=== PATIENT | male | born 1965 | race Two or more races ===

== ENCOUNTER 2021-04-05 09:45 | Emergency (ER) | payer SELFPAY ==
[~2021-04-05] VITALS: Ht 167.6 cm; Wt 79.4 kg
[2021-04-05] MEDS ORDERED: SODIUM CHLORIDE 0.9% 1,000 ML IV ONE ×2 (10:00)
[2021-04-05] MEDS ORDERED: THIAMINE 100mg/ml INJ (200mg/2ml VIAL) IV ONE (10:00)
[2021-04-05 10:09] LABS: Basophils # (auto) 0.1 10 ^3/uL (0-0.2); Basophils % (auto) 0.8 % (0.0-2.0); Eosinophils # (auto) 0 10 ^3/uL (0-0.8); Eosinophils % (auto) 0.4 % (0.0-7.0); Hematocrit 37.9 % (41.0-53.0); Lymphocytes # (auto) 0.5 10 ^3/uL (0.4-5.4); Lymphocytes % (auto) 7.3 % (10.0-50.0); Mean Corpuscular Hemoglobin 32.8 pg (28.0-32.0); Mean Corpuscular Hgb Conc. 34.3 g/dL (32.0-36.0); Mean Corpuscular Volume 95.7 fL (80.0-100.0); Monocytes # (auto) 0.6 10 ^3/uL (0-1.3); Monocytes % (auto) 9.5 % (0.0-12.0); Neutrophils # (auto) 5.4 10 ^3/uL (1.6-8.6); Nucleated Red Blood Cells % 0.1 %; Red Blood Cells 3.97 10^6/uL (4.5-5.90); Red Cell Distribution Width 12.9 % (11.8-14.3); White Blood Cell 6.5 10^3/uL (4.4-10.8)
[2021-04-05] MEDS ORDERED: cloNIDine HCL 0.1 MG TAB ONE (10:18)
[2021-04-05 10:25] LABS: Albumin 3.6 g/dL (3.4-5.0); Anion Gap 14 (5-15); BUN/Creatinine Ratio 19.2; Blood Alcohol < 3.0 mg/dL (0-5); Blood Urea Nitrogen 20 mg/dL (7-18); Carbon Dioxide 22 mmol/L (21-32); Chloride 99 mmol/L (98-107); GFR African American 95 mL/min; GFR Non-African American 79 mL/min; Glucose 129 mg/dL (74-106); Sodium 135 mmol/L (136-145)
[2021-04-05 10:29] LABS: Alanine Aminotransferase 46 U/L (16-61); Alkaline Phosphatase 85 U/L (45-117); Aspartate Aminotransferase 68 U/L (15-37); Total Protein 8.3 g/dL (6.4-8.2)
[2021-04-05 10:30] LABS: INR 1.26 (0.9-1.15); Partial Thromboplastin Time 25.5 sec (23.6-33.0)
[2021-04-05] MEDS ORDERED: cloNIDine HCL 0.1 MG TAB PO ONE (10:30)
[2021-04-05 11:00] LABS: Urine Bacteria FEW /hpf (None Seen); Urine Blood TRACE /uL (Negative); Urine Hyaline Cast FEW /lpf (0 - 2); Urine Specific Gravity 1.009 (1.001-1.035); Urine WBC 1 /hpf (0 - 3)
[2021-04-05 11:40] LABS: Alcohol, Urine < 3.0 mg/dL (0-10); Amphetamine Screen, Urine NEGATIVE (NEGATIVE); Barbiturate Scree,Urine NEGATIVE (NEGATIVE); Benzodiazephine Screen, Urine NEGATIVE (NEGATIVE); Cannabinoid Screen, Urine NEGATIVE (NEGATIVE); Cocaine Screen, Urine NEGATIVE (NEGATIVE); Opiate Scree,Urine NEGATIVE (NEGATIVE); Phencyclidine Screen, Urine NEGATIVE (NEGATIVE)
[2021-04-05] MEDS ORDERED: cefTRIAXone SOD 1,000 MG VL IM ONE (13:00)
[2021-04-05 14:20] VITALS: BP 144/84
== END 2021-04-05 14:29 | disposition home or self-care (01) ==
LOC: ER 09:45 → EDBD 09:45 → ER 14:19
DX: S01.01XA Laceration without foreign body of scalp, initial encounter (principal); X58.XXXA Exposure to other specified factors, initial encounter; Y93.89 Activity, other specified; Y92.89 Other specified places as the place of occurrence of the external cause; Y99.8 Other external cause status
CPT/HCPCS: 12002; 36415; 70450; 80053; 80307; 80320; 81001; 84484; 85025; 85610; 85730; 96361; 96372; 96374; 99285; J0696; J3411; J7030